=== PATIENT | female | born 1970 | race African-American/Black ===

== ENCOUNTER 2023-03-28 23:50 | Emergency (ER) | payer OTHER ==
[2023-03-29 00:17] LABS: Absolute Lymphocytes (CBC) 1.6 K/uL (0.7-4.9); Hematocrit 37.7 % (36.0-45.0); MCV 85.3 fL (80-100); MPV 8.7 fL (7.6-11.3); RBC Red Blood Cell Count 4.42 M/uL (3.86-4.86)
[2023-03-29] MEDS ORDERED: NA CHLORIDE 0.9% 100 ML ONE ×2 (00:32→02:21)
[2023-03-29] MEDS ORDERED: LEVETIRACETAM 500 MG/5 ML VIAL IV ONE (00:32)
[2023-03-29 00:33] LABS: ALT/SGPT 19 U/L (13-56); AST/SGOT 15 U/L (15-37); Albumin 3.4 g/dL (3.4-5.0); Alkaline Phosphatase 67 U/L (45-117); BUN Blood Urea Nitrogen 14 mg/dL (7-18); Bicarbonate 25 mEq/L (21-32); Bilirubin Direct 0.1 mg/dL (0-0.2); Bilirubin Total 0.4 mg/dL (0.2-1.0); Glomerular Filtration Rate 83 ml/min (=/>90); Glucose Level 122 mg/dL (74-106); Potassium 3.8 mEq/L (3.5-5.1); Protein, Total 7.5 g/dL (6.4-8.2); Sodium Level 136 mEq/L (136-145)
[2023-03-29] MEDS ORDERED: KETOROLAC 30 MG/ML INJ ONE (02:20)
[2023-03-29] MEDS ORDERED: METOCLOPRAMIDE 10 MG/2mL INJ ONE (02:20)
[2023-03-29] MEDS ORDERED: VALPROATE NA 500 MG/5 ML INJ IV ONE (02:25)
[2023-03-29] MEDS ORDERED: NA CHLORIDE 0.9% 500 ML ONE (02:25)
--- NOTE | 2023-03-29 02:41 | EDPHYS ---
Physician Documentation [facility] Name: Adolph Sierra Age: 52 yrs Sex: Female : 1970 Arrival Date: 03/28/2023 Time: 23:50 Bed 19 Private MD: ED Physician Steve Castañeda HPI: 03/28 23:55 This 52 yrs old Female presents to ER via Unassigned with complaints of Seizure. cp 23:55 The patient presents with a history of multiple seizures, a total of 2, that last 10 cp minute(s), the episode(s) was witnessed, by EMS personnel, by family, daughter. 23:55 Character of seizure(s): Loss of consciousness: the patient experienced loss of cp consciousness, Motor activity: generalized, shaking all over. Seizure onset: today. Seizure Hx: Seizure medications: Keppra, known seizure disorder. Associated injury: Head/face: left yazidi, pain. EMS care: versed, 5 mg(s). Current symptoms: decreased level of consciousness, is arousable but tired, headache, that is moderate, stuttering speech. CARE NAVIGATOR: 03/29 00:01 LMP N/A - Post-menopause as6 Historical: - Allergies: 00:05 No Known Allergies; as6 - PMHx: 00:05 Seizure; Hypertensive disorder; as6 - PSHx: 00:05 None; as6 - Immunization history:: Adult Immunizations unknown. - Social history:: Smoking status: Patient denies any tobacco usage or history of. ROS: 00:00 Constitutional: Negative for body aches, chills, fever, poor PO intake. cp 00:00 Cardiovascular: Negative for chest pain, edema, palpitations. cp 00:00 Respiratory: Negative for cough, shortness of breath, wheezing. 00:00 Abdomen/GI: Negative for abdominal pain, nausea, vomiting, and diarrhea. 00:00 Neuro: Positive for headache, history of seizures. 00:00 Neck: Negative for pain with movement, pain at rest, stiffness. cp 00:00 All other systems are negative. cp Exam: 00:05 Constitutional: The patient appears in no acute distress, alert, awake, cp non-diaphoretic, non-toxic, well developed, well nourished, obese. 00:05 Head/Face: Normocephalic, atraumatic. cp 00:05 Eyes: Periorbital structures: appear normal, Pupils: equal, round, and reactive to cp light and accomodation, Conjunctiva: normal, no exudate, no injection, Sclera: no appreciated abnormality, Lids and lashes: appear normal, bilaterally. 00:05 ENT: External ear(s): are unremarkable, Nose: is normal, Mouth: Lips: moist, Oral cp mucosa: pink and intact, moist, Posterior pharynx: is normal, airway is patent, no erythema, no exudate. 00:05 Neck: ROM/movement: is normal, is supple, without pain, no range of motions limitations, no meningismus, no nuchal rigidity. 00:05 Chest/axilla: Inspection: normal, Palpation: is normal, no crepitus, no tenderness. 00:05 Cardiovascular: Rate: normal, Rhythm: regular. 00:05 Respiratory: the patient does not display signs of respiratory distress, Respirations: normal, no use of accessory muscles, no retractions, labored breathing, is not present, Breath sounds: are clear throughout, no decreased breath sounds, no stridor, no wheezing. 00:05 Abdomen/GI: Inspection: obese Palpation: abdomen is soft and non-tender, in all quadrants. 00:05 Neuro: Mentation: able to follow commands, slow to respond, Motor: moves all fours, general weakness with no focal deficits, Sensation: no obvious gross deficits, patient with stuttering speech. 00:15 ECG was reviewed by the Attending Physician. Vital Signs: 00:01 BP 154 / 95; Pulse 79; Resp 18 S; Temp 97.9(O); Pulse Ox 99% on R/A; Weight 143.34 kg as6 (M); Height 5 ft. 4 in. (R); 01:15 BP 160 / 97; Pulse 74; Resp 17; Pulse Ox 100% on R/A; ll3 00:01 Body Mass Index 54.24 (143.34 kg, 162.56 cm) as6 MDM: 03/28 23:56 Patient medically screened. 03/29 02:38 Data reviewed: vital signs, nurses notes, lab test result(s), EKG, radiologic studies, cp CT scan. 02:38 Differential diagnosis: cerebral vascular accident, drug overdose, cardiac arrhythmia, cp seizure, sepsis. Consideration of Admission/Observation admission considered for continued monitoring, but patient now awake, speech normal and requesting discharge to home. Historians other than the Patient: EMS: assist with HPI. Daughter/Son: daughter and provide HPI. Care significantly affected by the following chronic conditions: Hypertension, seizure disorder. Counseling: I had a detailed discussion with the patient and/or guardian regarding: the historical points, exam findings, and any diagnostic results supporting the discharge/admit diagnosis, lab results, radiology results, the need for outpatient follow up, a neurologist, to return to the emergency department if symptoms worsen or persist or if there are any questions or concerns that arise at home. Response to treatment: the patient's symptoms have markedly improved after treatment, and as a result, I will discharge patient. 03/28 23:56 Order name: Acetaminophen; Complete Time: 01:44 cp 03/28 23:56 Order name: Basic Metabolic Panel; Complete Time: 01:44 cp 03/29 01:45 Interpretation: Normal except: GLUC 122; GFR 83. cp 03/28 23:56 Order name: CBC with Diff; Complete Time: 00:24 cp 03/29 00:24 Interpretation: Normal except: WBC 4.10; RDW 17.3. cp 03/28 23:56 Order name: ETOH Level; Complete Time: 01:44 cp 03/28 23:56 Order name: Hepatic Function; Complete Time: 01:44 cp 03/29 01:45 Interpretation: Normal except: GLOB 4.1; A/G 0.8. 03/28 23:56 Order name: PT-INR; Complete Time: 00:24 cp 03/28 23:56 Order name: Test, Urine cp 03/28 23:56 Order name: Ptt, Activated; Complete Time: 00:24 cp 03/28 23:56 Order name: Salicylate; Complete Time: 01:44 cp 03/28 23:56 Order name: Urinalysis w/ reflexes cp 03/28 23:56 Order name: Urine Drug Screen cp 03/28 23:56 Order name: CT Head Brain wo Cont cp 03/28 23:56 Order name: EKG; Complete Time: 23:58 cp 03/28 23:56 Order name: EKG - Nurse/Tech; Complete Time: 00:15 cp 03/28 23:56 Order name: IV Saline Lock; Complete Time: 00:01 cp 03/28 23:56 Order name: Labs collected and sent; Complete Time: 00:01 cp 03/28 23:56 Order name: Suicide Screening ([facility]); Complete Time: 23:59 cp EC:15 Rate is 74 beats/min. Rhythm is regular. [place] interval is normal. QRS interval is normal. cp QT interval is normal. T waves are Inverted in lead aVR. Interpreted by me. Reviewed by me. Administered Medications: 00:55 Drug: Keppra IV 1000 mg Route: IV; Rate: calculated rate; Site: right antecubital; ll3 02:34 Drug: Ketorolac IVP 15 mg Route: IVP; Site: right antecubital; kd3 02:35 Drug: NS 0.9% IV 500 ml Volume: 500 ml; Route: IV; Rate: 500 ml/hr; Site: right kd3 antecubital; 02:35 Drug: metoCLOPramide IVP 10 mg Route: IVP; Site: right antecubital; kd3 02:35 Drug: Depacon IV 500 mg Volume: 5 ml; Route: IV; Rate: calculated rate; Site: right kd3 antecubital; 03:04 Follow up: IV Status: Order to discontinue infusion; IV Intake: 250ml ; Medication was ll3 in 500ml bolus, pt refused to finish medication. Disposition Summary: 03/29/23 02:39 Discharge Ordered Location: Home cp Problem: an acute exacerbation cp Symptoms: have improved cp Condition: Stable cp Diagnosis - Other seizures cp - Hypertensive heart disease without heart failure cp Followup: cp - With: Private Physician - When: 1 - 2 days - Reason: Recheck today's complaints Discharge Instructions: - Discharge Summary Sheet cp - Hypertension, Adult cp - Seizure, Adult cp - Managing Your Hypertension cp - Form - Excuse from Work, School, or Physical Activity cp Forms: - Medication Reconciliation Form cp - Thank You Letter cp - Antibiotic Education cp - Prescription Opioid Use cp - Work release form jb4 Signatures: Dispatcher [employer] EDMS Steve Ordoñez PA PA cp Slawson, Ashby, RN RN as6 Shannon Patel RN RN ll3 Ida Mcdonough RN RN kd3 Corrections: (The following items were deleted from the chart) 03/30 02:25 05 00:05 Constitutional: The patient appears in no acute distress, alert, awake, cp non-diaphoretic, non-toxic, well developed, well nourished, cp
--- NOTE | 2023-03-29 02:41 | ER ---
Nurse's Notes [facility] Name: Adolph Sierra Age: 52 yrs Sex: Female : 1970 Arrival Date: 03/28/2023 Time: 23:50 Bed 19 Private MD: Diagnosis: Other seizures;Hypertensive heart disease without heart failure Presentation: 03/29 00:01 Chief complaint: EMS states: called out for seizure. pt was c/o headache and told her as6 daughter she was going to have a seizure and then proceeded to have a seizure. pt has a history of seizures and reports being compliant with medication. EMS gave 5mg Versed IM. Coronavirus screen: At this time, the client does not indicate any symptoms associated with coronavirus-19. Ebola Screen: No symptoms or risks identified at this time. Initial Sepsis Screen: Does the patient meet any 2 criteria? No. Patient's initial sepsis screen is negative. Does the patient have a suspected source of infection? No. Patient's initial sepsis screen is negative. Risk Assessment: Do you want to hurt yourself or someone else? Patient reports no desire to harm self or others. Onset of symptoms was March 29, 2023. 00:01 Acuity: SAMMY 2 as6 00:01 Method Of Arrival: EMS: [facility] as6 RECRUITMENT MANAGER: 00:01 LMP N/A - Post-menopause as6 Historical: - Allergies: 00:05 No Known Allergies; as6 - PMHx: 00:05 Seizure; Hypertensive disorder; as6 - PSHx: 00:05 None; as6 - Immunization history:: Adult Immunizations unknown. - Social history:: Smoking status: Patient denies any tobacco usage or history of. Screenin:45 [facility] ED Fall Risk Assessment (Adult) Confusion or Disorientation No (0 pts) ll3 Intoxicated or Sedated No (0 pts) Impaired Gait Yes (1 pt) Score/Fall Risk Level 0 - 2 = Low Risk. Abuse screen: Denies threats or abuse. Denies injuries from another. Nutritional screening: No deficits noted. Tuberculosis screening: No symptoms or risk factors identified. Assessment: 00:09 General: Appears uncomfortable, Behavior is calm, cooperative, flat. Pain: Complains of ll3 pain in H/A. Neuro: Level of Consciousness is awake, alert, obeys commands, post ictal, Oriented to person, place, time, situation, Reports headache Seizure activity reported prior to arrival. Respiratory: Respiratory effort is even, unlabored, Respiratory pattern is regular, symmetrical. Derm: Skin is pink, warm \T\ dry. 01:17 Reassessment: No changes from previously documented assessment. Patient and/or family ll3 updated on plan of care and expected duration. Pain level reassessed. Patient is alert, oriented x 3, equal unlabored respirations, skin warm/dry/pink. 02:49 Reassessment: Patient appears in no apparent distress at this time. No changes from jb4 previously documented assessment. Patient and/or family updated on plan of care and expected duration. Pain level reassessed. Vital Signs: 00:01 BP 154 / 95; Pulse 79; Resp 18 S; Temp 97.9(O); Pulse Ox 99% on R/A; Weight 143.34 kg as6 (M); Height 5 ft. 4 in. (R); 01:15 BP 160 / 97; Pulse 74; Resp 17; Pulse Ox 100% on R/A; ll3 00:01 Body Mass Index 54.24 (143.34 kg, 162.56 cm) as6 ED Course: 03/28 23:53 Patient arrived in ED. rv1 23:54 Steve Ordoñez PA is PHCP. cp 23:55 Steve Castañeda MD is Attending Physician. cp 03/29 00:00 Inserted saline lock: 18 gauge in right EJ, using aseptic technique. Blood collected. as6 00:00 Arm band placed on. as6 00:05 Triage completed. as6 00:14 EKG done, by ED staff, reviewed by Steve DOYLE. jw7 00:35 CT Head Brain wo Cont In Process Unspecified. EDMS 01:16 Patient has correct armband on for positive identification. Placed in gown. Bed in low ll3 position. Call light in reach. Side rails up X 1. Adult w/ patient. 02:49 Karsten Childs, RN is Primary Nurse. jb4 03:05 No provider procedures requiring assistance completed. IV discontinued, intact, ll3 bleeding controlled, No redness/swelling at site. Pressure dressing applied. Administered Medications: 00:55 Drug: Keppra IV 1000 mg Route: IV; Rate: calculated rate; Site: right antecubital; ll3 02:34 Drug: Ketorolac IVP 15 mg Route: IVP; Site: right antecubital; kd3 02:35 Drug: NS 0.9% IV 500 ml Volume: 500 ml; Route: IV; Rate: 500 ml/hr; Site: right kd3 antecubital; 02:35 Drug: metoCLOPramide IVP 10 mg Route: IVP; Site: right antecubital; kd3 02:35 Drug: Depacon IV 500 mg Volume: 5 ml; Route: IV; Rate: calculated rate; Site: right kd3 antecubital; 03:04 Follow up: IV Status: Order to discontinue infusion; IV Intake: 250ml ; Medication was ll3 in 500ml bolus, pt refused to finish medication. Medication: 02:50 VIS not applicable for this client. jb4 Intake: 03:04 IV: 250ml; Total: 250ml. ll3 Outcome: 02:39 Discharge ordered by MD. cp 03:05 Discharged to home via wheelchair, with family. ll3 03:05 Condition: stable 03:05 Discharge instructions given to patient, Instructed on discharge instructions, follow up and referral plans. Demonstrated understanding of instructions, follow-up care. 03:06 Patient left the ED. ll3 Signatures: Dispatcher [employer] EDMS Steve Ordoñez PA PA cp Bryson, James, RN RN jb4 Trenton Christian RN RN as6 Shannon Patel RN RN ll3 Ida Mcdonough RN RN kd3 Lexi Oleary Fern [facility]
[2023-03-29 03:11] LABS: Barbiturates NEGATIVE (NEGATIVE); Benzodiazepines POSITIVE (NEGATIVE); Cocaine NEGATIVE (NEGATIVE); METHAMPHETAM NEGATIVE (NEGATIVE); Methadone NEGATIVE (NEGATIVE); Opiates NEGATIVE (NEGATIVE); Phencyclidine NEGATIVE (NEGATIVE); THC Cannibis NEGATIVE (NEGATIVE)
[2023-03-29 05:01] LABS: Specific Gravity 1.016 (1.005-1.030)
[2023-03-29 05:03] LABS: Specific Gravity 1.016 (1.005-1.030); Urine Bacteria None Seen /HPF (<20); Urine Bilirubin NEGATIVE (Negative); Urine Blood Negative (Negative); Urine Clarity Clear (Clear); Urine Color Colorless (Yellow); Urine Glucose NEGATIVE (Negative); Urine Protein NEGATIVE (Negative); Urine RBC None Seen /HPF (None Seen); Urine Urobilinogen Normal (Normal); Urine pH 7.5 (5.0-7.0)
[2023-03-29 08:21] VITALS: TEMP 97.9
[2023-03-29 08:32] VITALS: BP 160/97; O2SAT 100
--- NOTE | 2023-03-29 11:09 | RAD REPORT ---
EXAM DESCRIPTION: CT - Head Brain Wo Cont - 03/29/2023 6:31 am CLINICAL HISTORY: Female, 52 years old, HEADACHE COMPARISON: None. TECHNIQUE: CT acquisition of the head without contrast. Coronal and sagittal reformatted images prov ided. This exam was performed according to departmental dose-optimization program which includes auto mated exposure control, adjustment of the mA and/or kV according to patient size, and/or use of itera tive reconstruction technique. FINDINGS: No intracranial hemorrhage or extraaxial fluid collection. No mass effect or midline shift. Ventricles, cisterns, and sulci are normal in size and configuration. Brain parenchymal attenuation and wilson-white matter differentiation are within normal limits. Partially empty sella configuration. The calvarium and imaged facial bones are intact. Overlying soft tissues are normal. The visualized paranasal sinuses and mastoid cells are clear. Orbits are unremarkable. IMPRESSION: No acute intracranial findings. Electronically signed by: Kt Guerrero MD 03/29/2023 12:45 AM CDT Due to temporary technical issues with the PACS/Fluency reporting system, reports are being signed by the in house radiologists without review as a courtesy to insure prompt reporting. The interpreting radiologist is fully responsible for the content of the report.
--- NOTE | 2023-03-29 15:58 | EKG ---
Test Date: 2023-03-29 Test Time: 00:11:56 Pelts Skinner: FARRAH MEASUREMENT RESULTS: Intervals: Rate: 74 MS: 152 QRSD: 82 QT: 390 QTc: 432 [place]: P: 57 MS: 152 QRS: 25 T: 34 INTERPRETIVE STATEMENTS: Normal sinus rhythm Normal ECG No previous ECG available for comparison Electronically Signed On 03-29-23 15:56:56 CDT by Salvatore Verdugo
== END 2023-03-29 03:06 | disposition home or self-care (01) ==
LOC: ER 23:50
DX: G40.89 Other seizures (principal); I11.9 Hypertensive heart disease without heart failure; I10 Essential (primary) hypertension
CPT/HCPCS: 93005; 85025; 81001; 80048; 36415; 81025; 85610; 80076; 85730; 80307; 70450; J1953; J2765; J7040; G0480 ×3